=== PATIENT | female | born 2000 | race Caucasian/White ===

== ENCOUNTER 2021-12-11 18:09 | Emergency (ER) | payer OTHER, SELFPAY ==
--- NOTE | 2021-12-11 18:22 | ED.GENADULT ---
HPI - General Adult General Chief complaint: Unspecified Stated complaint: low back pain Source: patient Mode of arrival: ambulatory Limitations: no limitations History of Present Illness HPI narrative: 21 year old female presents to the Emergency Department complaining of right lower back pain. States onset while lifting resident at [employer] she works at this morning. Patient is 28 weeks . Denies any uterine contractions. Denies vaginal bleeding or fluid leakage. Denies urinary tract symptoms. [note: patient works at [employer] in [place] and lives in [place]. Her OB is in [place]. She is accompanied by friend who works at same [employer] and c/o shoulder injury from lifting and lives in [place]] Onset (ago): hour(s) (this morning) Location: back (right lower) Radiation: non-radiation Pain Consistency: constant Relieving factors: none Exacerbating factors: movement Associated symptoms: denies other symptoms Treatments prior to arrival: none Related Data Home Medications Medication Instructions Recorded Confirmed vitamin B complex (B 1 tablet PO DAILY 12/11/21 12/11/21 Complex-Vitamin B12 tablet) Allergies Allergy/AdvReac Type Severity Reaction Status Date / Time No Known Allergies Allergy Verified 12/11/21 18:39 Review of Systems Review of Systems: All systems reviewed & are unremarkable except as noted in HPI and below Constitutional: Constitutional: Reports as per HPI and Reports no additional constitutional complaints Eyes: Eyes: Reports as per HPI and Reports no additional eye complaints ENT: Reports system reviewed and no additional complaints, except as documented and Reports as per HPI Cardiovascular: Cardiovascular: Reports as per HPI and Reports no additional cardiovascular complaints Respiratory: Respiratory: Reports as per HPI and Reports no additional respiratory complaints Gastrointestinal: Gastrointestinal: Reports as per HPI and Reports no additional gastrointestinal complaints Genitourinary: Genitourinary: Reports no additional female genitourinary complaints and Reports as per HPI Comments: 28 weeks gestation Musculoskeletal: Musculoskeletal: Reports no additional musculoskeletal complaints, Reports as per HPI, Reports back pain (right lower), Denies muscle weakness, Denies numbness and Denies tingling Integumentary/Breasts: Skin/Breast: Reports system reviewed and no additional complaints, except as docu and Reports as per HPI Neurologic: Reports system reviewed and no additional complaints, except as documented, Reports as per HPI, Denies numbness, Denies radicular pain, Denies Sensory deficit (Neuro) and Denies tingling Psychiatric: Psychiatric: Reports no additional psychiatric complaints and Reports as per HPI Endocrine: Endocrine: Reports no additional endocrine complaints and Reports as per HPI Hematologic/Lymphatic: Hematologic/Lymphatic: Reports no additional hematologic/lymphatic complaints and Reports as per HPI Allergic/Immunologic: Allergic/Immunologic: Reports no additional allergic/immunologic complaints and Reports as per HPI Exam Const: General: cooperative, healthy appearing, comfortable, no acute distress, well developed, alert, awake and Physically active Orientation/consciousness: patient oriented x3 Limitations: no limitations HENMT: Head: normal to inspection General nose exam: Normal external nose present Face and sinus: normal facial exam Eyes: General: appearance normal, both eyes and all related structures Visual Matos: normal visual matos by confrontation Pupils: Equal, round and reactive pupils present EOM: EOMs intact bilaterally Neck: Neck: normal visual inspection Chest: Chest palpation & inspection: normal inspection of the chest Resp: Effort & Inspection: normal respiratory effort Auscultation: clear to auscultation bilaterally Cardio: Rate: regular rate Rhythm: regular rhythm GI: Inspection: normal to inspection GI Pal
[2021-12-11 18:26] VITALS: BP 124/80; PULSE 70; RESP 20; TEMP 37; O2SAT 100
[2021-12-11 18:37] LABS: Add Urine Microscopic? YES; Bilirubin Urine Negative (Negative); Blood Urine Negative (Negative); Color Urine Light Yellow (Yellow); Glucose Urine UA Trace (Negative); Ketones Urine Trace (Negative); Leukocyte Esterase Ur 1+ LEU/UL (Negative); Nitrate Urine Negative (Negative); Protein Urine Negative (Negative); Specific Grav Ur 1.015 (1.010-1.020); Urobilinogen Urine 0.2 mg/dL (0.2-1.0)
[2021-12-11 18:45] LABS: Appearance Urine Cloudy (Clear)
[2021-12-11 18:46] LABS: Bacteria Urine 3+ /hpf; Mucus Urine Few /lpf; RBC Urine 0-2 /hpf (0-2); Squamous Epithelial Cell Urine Moderate /hpf (Few)
[2021-12-11 19:06] VITALS: BP 126/80; PULSE 80; RESP 18; TEMP 36.6; O2SAT 100
== END 2021-12-11 19:09 | disposition home or self-care (01) ==
PROVIDERS: Emergency Provider Emergency Medicine; PCP Family Medicine
DX: S39.012A Strain of muscle, fascia and tendon of lower back, initial encounter (principal); N39.0 Urinary tract infection, site not specified; Z33.1 Pregnant state, incidental; X50.9XXA Other and unspecified overexertion or strenuous movements or postures, initial encounter
CPT/HCPCS: 81001; 87086; 87088; 99283